=== PATIENT | female | born 1975 | race Caucasian/White ===

== ENCOUNTER → 2019-05-06 | Outpatient (CLI) | payer OTHER ==
--- NOTE | 2019-05-10 16:33 | RADIOLOGY IMAGING REPORT ---
FACILITY: [facility] [place] PATIENT NAME: STANFORD DALY : [id number] MR: [id number] V: [id number] EXAM DATE: [id number] ORDERING PHYSICIAN: SHANON CACERES TECHNOLOGIST: Ana Braga PROCEDURE: BILATERAL DIGITAL SCREENING MAMMOGRAM WITH CAD ASSISTED INTERPRETATION & 3D TOMOSYNTHESIS REASON FOR STUDY: Screening FAMILY HISTORY OF BREAST CANCER: BREAST PROCEDURES/TREATMENTS: COMPARISON: Outside priors have not yet been obtained. VIEWS OBTAINED: Bilateral 2D & 3D full field CC & MLO projections BREAST DENSITY: The breasts have scattered fibroglandular parenchymal densities. MAMMOGRAM FINDINGS: There is a small benign appearing fat containing mass just below the skin in the 11-12 o'clock area of the Right breast superiorly. No mammographic findings concerning for malignancy. IMPRESSION: BIRADS 2: Benign finding. DIAGNOSTIC CATEGORY 2--BENIGN FINDING. RECOMMENDATIONS: ROUTINE MAMMOGRAM IN 1 YEAR AND CLINICAL EVALUATION. If outside priors can be obtained a comparison addendum can be done. Dictated by: Schuyler Huff on 05/10/2019 at 8:52 Transcribed by: [email or web address] on 05/10/2019 at 14:03 Approved by: Schuyler Huff on 05/10/2019 at 16:30 [facility]
== END ==
LOC: MAMO 01:05
PROVIDERS: ATTEND Nurse Practitioner Family
DX: Z12.31 Encounter for screening mammogram for malignant neoplasm of breast (principal)
CPT/HCPCS: 77063; 77067